=== PATIENT | male | born 2000 | race Caucasian/White ===

== ENCOUNTER 2021-02-07 11:41 | Emergency (ER) | payer BC ==
[~2021-02-07] VITALS: Ht 172.7 cm; Wt 81.8 kg
[2021-02-07 12:08] VITALS: BP 161/80; TEMP 98.6
[2021-02-07 13:15] LABS: BASO % 0.4 % (0.0-2.0); EOS % 0.4 % (0-4.0); GRAN # 3.4 (1.4-6.5); GRAN % 69.4 % (42.2-75.2); HEMOGLOBIN 15.8 g/dl (12.5-16.1); LYMPH # 1.1 (1.2-3.4); LYMPH % 21.8 % (20.0-51.0); MEAN CELL VOLUME 88 fl (80.0-95.0); MEAN CORPUSCULAR HEMOGLOBIN 30 pg (26.0-32.0); MEAN CORPUSCULAR HGB CONC 34 g/dl (33.0-37.0); MEAN PLATELET VOLUME 8.2 fl (7.4-10.4); MONO # 0.4 (0.1-0.6); MONO % 7.6 % (1.7-9.3); PLATELET COUNT 162 K/mm3 (130-400); RED BLOOD COUNT 5.35 M/mm3 (4.20-5.60); REDCELL DISTRIBUTION WIDTH-CV 12.5 % (11.5-14.5)
[2021-02-07 13:32] LABS: ALBUMIN 4.5 gm/dL (3.5-5.0); CALCIUM 9.5 mg/dL (8.4-10.2); CREATININE, serum 1.03 mg/dL (0.72-1.25); POTASSIUM 4.2 mmol/L (3.5-4.5); TOTAL PROTEIN 7.6 gm/dL (6.2-8.1)
[2021-02-07 13:38] LABS: TROPONIN-I 0.013 ng/mL (0.00-0.033)
[2021-02-07 14:14] VITALS: PULSE 50
== END 2021-02-07 14:03 | disposition home or self-care (01) ==
LOC: COL.ER 11:41
PROVIDERS: Family Medicine
DX: R00.2 Palpitations (principal)

== ENCOUNTER 2022-01-15 14:42 | Emergency (ER) | payer BC ==
[~2022-01-15] VITALS: Ht 175.3 cm; Wt 81.8 kg
[2022-01-15 15:17] VITALS: BP 129/58; TEMP 98.3
[2022-01-15] MEDS ORDERED: MIRALAX510G PO (16:37)
[2022-01-15] MEDS ORDERED: ANUSOL HC CREAM30 GM TP (16:37)
[2022-01-15 16:45] VITALS: PULSE 92
== END 2022-01-15 16:45 | disposition home or self-care (01) ==
LOC: COL.ER 14:42
DX: L29.0 Pruritus ani (principal); K59.00 Constipation, unspecified; Z28.310 Unvaccinated for COVID-19

== ENCOUNTER 2023-12-28 17:48 | Emergency (ER) | payer BC ==
[~2023-12-28] VITALS: Ht 172.7 cm; Wt 95.5 kg
[~2023-12-28 17:48] MED LIST: ANUSOL HC CREAM30 GM TP; BACTRIM DS 8001 TAB PO; MIRALAX510G PO; NAPROSYN500 MG PO
[2023-12-28 17:53] VITALS: BP 136/72; PULSE 71; TEMP 98.3
== END 2023-12-28 18:50 | disposition home or self-care (01) ==
LOC: COL.ER 17:48
DX: Z20.3 Contact with and (suspected) exposure to rabies (principal)

== ENCOUNTER 2024-03-16 13:55 | Emergency (ER) | payer BC ==
[~2024-03-16] VITALS: Ht 172.7 cm; Wt 93.2 kg
[2024-03-16 14:42] VITALS: TEMP 98
[2024-03-16 15:24] VITALS: BP 150/109; PULSE 64
== END 2024-03-16 15:23 | disposition home or self-care (01) ==
LOC: COL.ER 13:55
DX: K64.9 Unspecified hemorrhoids (principal)